=== PATIENT | male | born 1985 | race Caucasian/White ===

== ENCOUNTER → 2022-12-03 | Outpatient (CLI) | payer OTHER ==
[~2022-12-03] MED LIST: CLIN300C OR; DEXA1TAB8 OR; No Historical Meds; VICO5TAB OR
== END ==
LOC: M RAD 06:44
PROVIDERS: ATTEND Physician Assistant
DX: R22.1 Localized swelling, mass and lump, neck (principal)

== ENCOUNTER → 2023-05-28 | Outpatient (CLI) | payer OTHER | LOC: M RAD 09:11 | PROVIDERS: ATTEND Otolaryngology | DX: R22.1 Localized swelling, mass and lump, neck (principal) ==